=== PATIENT | male | born 1985 | race Caucasian/White ===

== ENCOUNTER 2018-03-08 23:59 | Emergency (ER) | payer BC, OTHER ==
[~2018-03-08] VITALS: Ht 177.8 cm; Wt 83.9 kg
[2018-03-09] MEDS ORDERED: NORCO 5-325 TA1 EACH PO (00:12)
[2018-03-09] MEDS ORDERED: PENICILLIN VK500 M1 PO (00:12)
[2018-03-09 00:40] VITALS: BP 138/94
== END 2018-03-09 00:30 | disposition home or self-care (01) ==
LOC: ER 23:59
DX: K02.9 Dental caries, unspecified (principal); K04.7 Periapical abscess without sinus

== ENCOUNTER 2020-11-12 17:17 | Emergency (ER) | payer BC, OTHER ==
[~2020-11-12] VITALS: Ht 177.8 cm; Wt 86.2 kg
[~2020-11-12 17:17] MED LIST: NORCO 5-325 TA1 EACH PO; PENICILLIN VK500 M1 PO
[2020-11-12 17:22] VITALS: BP 118/83
== END 2020-11-12 18:12 | disposition home or self-care (01) ==
LOC: ER 17:17
DX: S61.215A Laceration without foreign body of left ring finger without damage to nail, initial encounter (principal); Z79.899 Other long term (current) drug therapy; W26.8XXA Contact with other sharp object(s), not elsewhere classified, initial encounter; Y93.89 Activity, other specified; Y92.89 Other specified places as the place of occurrence of the external cause; Y99.8 Other external cause status

== ENCOUNTER → 2021-06-28 | Outpatient (CLI) | payer OTHER | LOC: CAT 08:17 | PROVIDERS: ATTEND Family Medicine | DX: Z13.6 Encounter for screening for cardiovascular disorders (principal); I25.10 Atherosclerotic heart disease of native coronary artery without angina pectoris; E78.00 Pure hypercholesterolemia, unspecified ==